=== PATIENT | male | born 2000 | race Caucasian/White ===

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

== ENCOUNTER 2021-08-16 01:38 | Emergency (ER) | payer BC, MEDICAID ==
[2021-08-16 02:05] VITALS: BP 121/75; PULSE 76
== END 2021-08-16 03:50 | disposition home or self-care (01) ==
LOC: JD.ED 01:38
DX: S93.402A Sprain of unspecified ligament of left ankle, initial encounter (principal); Z79.899 Other long term (current) drug therapy; Z87.891 Personal history of nicotine dependence; X50.1XXA Overexertion from prolonged static or awkward postures, initial encounter
CPT/HCPCS: 29515; 73610-26-LT; 73610-LT; 99282; 99283-25